=== PATIENT | female | born 1990 | race Caucasian/White ===

== ENCOUNTER 2022-11-24 03:57 | Emergency (ER) | payer SELFPAY ==
[~2022-11-24] VITALS: Ht 160 cm; Wt 59.2 kg
[2022-11-24] MEDS ORDERED: KEPPRA500 MG PO (04:41)
[2022-11-24 04:50] VITALS: BP 95/63
--- OUTSIDE RECORDS SUMMARY | 2022-11-24 06:04 | XMS ---
PreManage Notification: AVINASH TINEO Security Assistant Pressman Events No recent Security Events currently on file CRITERIA MET - 6 ED Visits in 6 Months - [facility] - 3 Facilities in 90 Days CARE PROVIDERS There are no care providers on record at this time. Lalo has no Care Guidelines for this patient. Amy VISIT COUNT (12 MO.) 1 [facility] 1 [facility] [place] 1 [facility] 5 [facility] [place] 1 [facility] TOTAL 9 NOTE: Visits indicate total known visits. ED/C VISIT TRACKING (12 MO.) 11/24/2022:58 [facility] [place] TYPE: Emergency COMPLAINT: - POST SEIZURE 09/16/2022 23:40 [facility] TYPE: Emergency DIAGNOSES: - Epilepsy, unspecified, intractable, without status epilepticus - Low back pain, unspecified - Other chronic pain - Back Pain - back pain, possible urinary retention 09/16/2022 18:12 [facility] [place] TYPE: Emergency DIAGNOSES: - Cystitis, unspecified without hematuria - Sciatica, left side - Back Pain 08/27/2022 02:16 [facility] [place] TYPE: Emergency DIAGNOSES: - Lumbago with sciatica, left side - Lumbago with sciatica, right side - Back Pain 08/01/2022 14:48 [facility] [place] TYPE: Emergency DIAGNOSES: - Acute cystitis without hematuria - Acute vaginitis - Low back pain, unspecified - Other specified bacterial agents as the cause of diseases classified elsewhere - Abdominal pain 07/07/2022 12:08 [facility] [place] TYPE: Emergency DIAGNOSES: 63078. ABD CRAMPS HX SEIZURES 23536. Acute cystitis with hematuria 26214. Epilepsy, unspecified, not intractable, without status epilepticus 06/14/2022 13:27 [facility] [place] [facility] TYPE: Emergency DIAGNOSES: - Unspecified convulsions - Seizure (Adult - Prior Hx Of) 05/05/2022 09:00 [facility] [place] TYPE: Emergency DIAGNOSES: - Unspecified convulsions - Seizure - Seizures 02/25/2022 23:45 [facility] [place] TYPE: Emergency DIAGNOSES: - Laceration without foreign body of right middle finger without damage to nail, initial encounter - Finger Laceration - Laceration INPATIENT VISIT TRACKING (12 MO.) No inpatient visits to display in this time frame [email or web address]
== END 2022-11-24 04:50 | disposition home or self-care (01) ==
LOC: ED 03:57
DX: R56.9 Unspecified convulsions (principal)
CPT/HCPCS: 36415; 80053; 81003; 84703; 85025; 99284; G0480